=== PATIENT | male | born 2000 | race Caucasian/White ===

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

== ENCOUNTER 2019-10-08 21:45 | Emergency (ER) | payer OTHER ==
[2019-10-08] MEDS ORDERED: Lidocaine 2% VISCOUS* 15 ML UDC PO ONE (21:53)
[2019-10-08] MEDS ORDERED: Al Hydrox/Mg Hydrox/Simet LIQ* 30 ML UDC PO ONE (21:53)
[2019-10-08 21:57] VITALS: BP 140/82
--- NOTE | 2019-10-08 22:28 | UC ---
Abdominal Pain Male HPI - HPI Summary HPI Summary: PATIENT WITH A HISTORY OF REFLUX PRESENTS WITH SEVERAL DAYS OF EPIGASTRIC PAIN WORSE AFTER EATING ACIDIC, SPICY FOODS. DISCOMFORT NOT RESPONDING TO TUMS IT NORMALLY DOES. RANITIDINE NOT HELPING EITHER. DENIES CHEST PAIN, SHORTNESS OF BREATH, NAUSEA. - History of Current Complaint Chief Complaint: UCChestPain Stated Complaint: CHEST PAIN Time Seen by Provider: 10/08/19 21:52 Hx Obtained From: Patient Onset/Duration: Gradual Onset, Lasting Days Timing: Intermittent Episodes Lasting: Severity Initially: Moderate Severity Currently: Moderate Pain Intensity: 5 Pain Scale Used: 0-10 Numeric Location: Epigastric Radiates: No Character: Burning Aggravating Factor(s): Food Alleviating Factor(s): Spontaneous Resolution Associated Signs And Symptoms: Positive: Negative - Allergies/Home Medications Allergies/Adverse Reactions: Allergies Allergy/AdvReac Type Severity Reaction Status Date / Time No Known Allergies Allergy Verified 10/08/19 21:57 Home Medications: Home Medications Calcium Carbonate CHEW TAB* [Tums*] 500 mg PO ONCE 10/08/19 [History Confirmed 10/08/19] PMH/Surg Hx/FS Hx/Imm Hx GI/ History: Gastroesophageal Reflux Psychological History: Depression - Surgical History Surgical History: None - Family History Known Family History: Positive: None - Social History Alcohol Use: None Substance Use Type: None Smoking Status (MU): Never Smoked Tobacco - Immunization History Most Recent Influenza Vaccination: no Vaccination Up to Date: Yes Review of Systems All Other Systems Reviewed And Are Negative: Yes Constitutional: Positive: Negative Respiratory: Positive: Negative Cardiovascular: Positive: Negative Gastrointestinal: Positive: Abdominal Pain Physical Exam Triage Information Reviewed: Yes Appearance: Well-Appearing, No Pain Distress, Well-Nourished Vital Signs: Initial Vital Signs Temp 98.6 F 10/08/19 21:52 Pulse 75 10/08/19 21:52 Resp 16 10/08/19 21:52 BP 140/82 10/08/19 21:52 Pulse Ox 98 10/08/19 21:52 Vital Signs Reviewed: Yes Eyes: Positive: Conjunctiva Clear ENT: Positive: Hearing grossly normal, Pharynx normal, TMs normal Neck: Positive: Supple, Nontender, No Lymphadenopathy Respiratory Exam: Normal Cardiovascular Exam: Normal Abdomen Description: Positive: Nontender, Soft. Negative: CVA Tenderness (R), CVA Tenderness (L), Distended, Guarding Bowel Sounds: Positive: Present Diagnostics - EKG Cardiac Rate: NL Cardiac Rhythm: Sinus: Normal Ectopy: None ST Segment: Normal Re-Evaluation - Re-Evaluation First Eval Re-Evaluation Time: 20:20 - FELT IMPROVED AFTER GI COCKTAIL Change: Improved Abd Pain Male Course/Dx - Course Course Of Treatment: EKG UNREMARKABLE. SYMPTOMS MORE CONSISTENT WITH REFLUX THAN WITH ANY CARDIAC ETIOLOGY. PATIENT FELT IMPROVED AFTER GI COCKTAIL. WILL TRY PPI AND HAVE PATIENT FOLLOW-UP WITH GI FOR EVALUATION OF HIS CHRONIC REFLUX SYMPTOMS. TO THE ER WITHOUT FAIL IF HE DEVELOPS ANY WORSENING PAIN. - Differential Dx/Clinical Impression Provider Diagnosis: GERD (gastroesophageal reflux disease) Discharge ED - Sign-Out/Discharge Documenting (check all that apply): Patient Departure All imaging exams completed and their final reports reviewed: No Studies - Discharge Plan Condition: Stable Disposition: HOME Prescriptions: Omeprazole CAP (NF) [Prilosec CAP* 20 MG] 20 mg PO DAILY #30 cap. Patient Education Materials: Gastroesophageal Reflux Disease (ED) Referrals: [facility] [Outside] - If Needed Additional Instructions: TAKE THE REFLUX MEDICINE IN THE MORNING (IDEALLY AT LEAST 30 MINUTES BEFORE YOU EAT). EAT SLOWLY. STAY UPRIGHT AT LEAST 30 MINUTES AFTER EATING. EAT SMALLER, MORE FREQUENT MEALS OPPOSED TO LARGE INFREQUENT MEALS. AVOID POSSIBLE TRIGGER FOODS - GREASY, SPICY, ACIDIC FOODS. CAFFEINE, ALCOHOL. CONSIDER EVAL BY [facility] Address: [address], [place] [address] - Billing Disposition and Condition Condition: STABLE Disposition: Home
== END 2019-10-08 22:28 | disposition home or self-care (01) ==
LOC: UCCORT 21:45
DX: K21.9 Gastro-esophageal reflux disease without esophagitis (principal)
CPT/HCPCS: 93005; 99212; A9270-GY; G0463